=== PATIENT | female | born 1955 | race Caucasian/White ===

== ENCOUNTER 2016-06-20 07:52 | Day surgery (SDC) | payer OTHER, BC ==
[~2016-06-20 07:52] MED LIST: Lactated Ringers 1,000 ML IV SCH; Sodium Chloride 0.9% 10 ML Syringe FLUSH PRN
[2016-06-20] MEDS ORDERED: Propofol 200 MG/20 ML SDV ONE ×2 (08:39→09:15)
[2016-06-20] MEDS ORDERED: Midazolam 1 MG/ML 2 ML SDV ONE ×2 (08:39→09:15)
[2016-06-20] MEDS ORDERED: fentaNYL 100 MCG/2 ML SDV ONE ×2 (08:39→09:15)
--- NOTE | 2016-06-20 09:15 | PCM.HPR ---
H & P Addendum review - H & P Addendum Review Date of Original H & P: 06/04/16 Date Reviewed: 06/20/16 Time Reviewed: 09:05 Patient was examined: No Changes (ok to proceed with colonoscopy)
--- NOTE | 2016-06-20 09:43 | PCM.OPNOTE ---
- General Post-Op/Procedure Note Date of Surgery/Procedure: 06/20/16 Operative Procedure(s): Colonoscopy Findings: Normal Pre Op Diagnosis: Colon Screening Post-Op Diagnosis: Same Anesthesia Technique: ANGELICA Primary Surgeon: Howard Perez Anesthesia Provider: Lisa Giron Complications: None Condition: Good
--- NOTE | 2016-06-20 11:38 | OR ---
Date of Procedure: 06/20/2016 PREOPERATIVE DIAGNOSIS: Colon screening. POSTOPERATIVE DIAGNOSIS: Normal colonoscopy. PROCEDURE: Colonoscopy. ANESTHESIA: IV sedation. DESCRIPTION OF PROCEDURE: The patient was brought to the procedure room, where she was placed on her left side and IV sedation administered. Digital rectal exam was performed which was normal. Colonoscope was inserted and advanced to the level of the cecum without difficulty. Cecal position was confirmed by identifying the appendiceal lumen and ileocecal valve. Prep was good and surfaces were well visualized. Upon withdrawing the scope, the ascending, transverse, and descending colon were normal in appearance. Sigmoid colon and rectum were normal. Retroflexion was normal. Air was removed and the scope withdrawn. The patient tolerated the procedure well and returned to recovery in stable condition. Recommend routine colon screening in 10 years. JAMILA DELANEY MD /[id number]
[2016-06-20 13:42] VITALS: BP 118/72
== END 2016-06-20 11:21 | disposition home or self-care (01) ==
LOC: LL.SDS 07:52
PROVIDERS: ATTEND Surgery
DX: Z12.11 Encounter for screening for malignant neoplasm of colon (principal); E78.5 Hyperlipidemia, unspecified; Z88.2 Allergy status to sulfonamides; Z98.890 Other specified postprocedural states; Z79.899 Other long term (current) drug therapy
CPT/HCPCS: 00810; 45378; J2250; J2704; J3010; J7120